=== PATIENT | female | born 1970 | race Caucasian/White ===

== ENCOUNTER 2020-11-13 14:32 | Outpatient (CLI) | payer OTHER | END 2020-11-13 14:33 | disposition home or self-care (01) | LOC: BICMAMMO 14:32 | PROVIDERS: ATTEND Family Medicine | DX: Z12.31 Encounter for screening mammogram for malignant neoplasm of breast (principal); Z98.82 Breast implant status | CPT/HCPCS: 77063; 77067 ==

== ENCOUNTER 2020-11-21 14:35 | Outpatient (CLI) | payer OTHER | END 2020-11-21 14:36 | disposition home or self-care (01) | LOC: BICMAMMO 14:35 | PROVIDERS: ATTEND Family Medicine | DX: R92.2 Inconclusive mammogram (principal) | CPT/HCPCS: G0279 ==

== ENCOUNTER 2021-09-09 09:10 | Outpatient (CLI) | payer BC | END 2021-09-09 09:11 | disposition home or self-care (01) | LOC: TBSIIMAG 09:10 | PROVIDERS: ATTEND Family Medicine | DX: S83.92XD Sprain of unspecified site of left knee, subsequent encounter (principal); M23.92 Unspecified internal derangement of left knee ==

== ENCOUNTER 2023-06-24 12:40 | Outpatient (CLI) | payer BC | END 2023-06-24 12:41 | disposition home or self-care (01) | LOC: BICMAMMO 12:40 | PROVIDERS: ATTEND Family Medicine | DX: Z12.31 Encounter for screening mammogram for malignant neoplasm of breast (principal); N63.10 Unspecified lump in the right breast, unspecified quadrant; N63.20 Unspecified lump in the left breast, unspecified quadrant; N64.89 Other specified disorders of breast; Z98.82 Breast implant status | CPT/HCPCS: 77063; 77067 ==

== ENCOUNTER 2023-07-23 09:50 | Outpatient (CLI) | payer BC | END 2023-07-23 09:51 | disposition home or self-care (01) | LOC: BICMAMMO 09:50 | PROVIDERS: ATTEND Family Medicine | DX: N63.10 Unspecified lump in the right breast, unspecified quadrant (principal); N63.20 Unspecified lump in the left breast, unspecified quadrant | CPT/HCPCS: G0279 ==